=== PATIENT | female | born 1950 | race Hispanic/Latino ===

== ENCOUNTER 2020-04-23 12:45 | Emergency (ER) | payer MEDICARE, MEDICAID ==
[2020-04-23] MEDS ORDERED: HYDROcodone/Acetaminophen 5/325 mg Tablet ONE (13:44)
[2020-04-23] MEDS ORDERED: Bacitracin 1 PK ONE (13:45)
[2020-04-23] MEDS ORDERED: Adacel (T-DAP) 0.5 ML SYRINGE ONE (13:45)
[2020-04-23] MEDS ORDERED: Acetaminophen 325 MG TAB ONE (13:45)
--- NOTE | 2020-04-23 13:55 | RAD ---
Exam:4 views left knee HISTORY: Pain. Injury. COMPARISON: None FINDINGS: Preserved joint spaces. No fracture, cortical irregularity or periosteal reaction. Mild bon e mineralization. Atherosclerosis is identified. IMPRESSION: No fracture.
== END 2020-04-23 14:10 | disposition home or self-care (01) ==
LOC: MADERS 12:45
DX: S80.212A Abrasion, left knee, initial encounter (principal); Z23 Encounter for immunization; E03.9 Hypothyroidism, unspecified; E11.22 Type 2 diabetes mellitus with diabetic chronic kidney disease; I12.0 Hypertensive chronic kidney disease with stage 5 chronic kidney disease or end stage renal disease; N18.6 End stage renal disease; Z99.2 Dependence on renal dialysis; Z79.4 Long term (current) use of insulin
CPT/HCPCS: 90471; 90715